=== PATIENT | male | born 1990 | race Caucasian/White ===

== ENCOUNTER 2018-11-15 16:36 | Emergency (ER) | payer OTHER ==
[~2018-11-15] VITALS: Ht 180.3 cm; Wt 80.9 kg
[2018-11-15 16:37] VITALS: BP 128/76
--- NOTE | 2018-11-15 17:13 | REP ---
Clinical: Trauma/injury. Technique: AP, lateral, bilateral oblique views of the right ankle. Findings: Lateral swelling consist with inversion injury. No acute fracture or dislocation. Joint spaces and ankle mortise are intact. Impression: Lateral swelling. No fracture. Electronically Signed by John Hartman MD 11/15/2018 05:05 P
== END 2018-11-15 17:32 | disposition home or self-care (01) ==
LOC: M ED 16:36
DX: S93.401A Sprain of unspecified ligament of right ankle, initial encounter (principal); X50.9XXA Other and unspecified overexertion or strenuous movements or postures, initial encounter; Y92.018 Other place in single-family (private) house as the place of occurrence of the external cause